=== PATIENT | female | born 1985 | race Caucasian/White ===

== ENCOUNTER → 2020-11-19 | Outpatient (CLI) | payer BC, MEDICARE ==
[~2020-11-19] MED LIST: AMBIEN 10MG10 MG PO; AMITRIPTYLINE H25 M1 PO; CLEOCIN HCL300 MG PO; FIORICET 325 MG1 TA1 PO; K-DUR20 MEQ PO; KLONOPIN 1MG1 MG PO; LASIX 20MG TABL20 MG PO; LASIX 40MG TABL40 MG PO; LOVENOX120 MG/0.8 SQ; NEURONTIN300 MG/CAP PO; NORCO 325 MG-51 TAB PO; NORCO 325 MG-7.1 TAB PO; PHENERGAN50 M1 PO; PLAQUENIL 200M200 MG PO; PRIL40 PO; REDITREX 225 MG/1 ML PO; REGLAN 10MG10 MG/TAB PO; STOOL SOFTENER100 M2 PO; TOPAMAX 25MG25 M1 PO; TOPROL XL 25MG25 MG PO; TOPROL XL 50MG50 MG PO; ZOLOFT 100MG100 MG PO
[2020-11-20 10:34] LABS: ANION GAP 8 mmol/L (7-16); BLOOD UREA NITROGEN 16 mg/dL (7-17); CALCIUM 9.1 mg/dL (8.4-10.2); CARBON DIOXIDE 21 mmol/L (22-30); CHLORIDE 113 mmol/L (98-107); CREATININE, serum 1.03 (0.52-1.25); GLUCOSE 87 mg/dL (74-106); POTASSIUM 4.2 mmol/L (3.4-5.0); SODIUM 141 mmol/L (137-145); TROPONIN-I < 0.012 ng/mL (0.000-0.035)
== END ==
LOC: ZCOL.LAB 13:45
PROVIDERS: Internal Medicine Interventional Cardiology
DX: Z11.59 Encounter for screening for other viral diseases (principal); R06.02 Shortness of breath

== ENCOUNTER 2020-11-20 15:48 | Emergency (ER) | payer BC, MEDICARE ==
[~2020-11-20] VITALS: Ht 167.6 cm; Wt 110.5 kg
[2020-11-20 15:55] VITALS: TEMP 98.5
[2020-11-20 16:49] LABS: COLLECTION METHOD CLEAN CATCH
[2020-11-20 17:13] LABS: PH 7 (5-8); URINE COLOR Yellow
[2020-11-20 17:14] LABS: URINE APPEARANCE Hazy; URINE BILIRUBIN Negative (NEGATIVE); URINE BLOOD Negative (NEGATIVE); URINE GLUCOSE Negative (NEGATIVE); URINE KETONE Negative (NEGATIVE); URINE LEUKOCYTE ESTERASE Negative (NEGATIVE); URINE NITRATE Negative (NEGATIVE); URINE PROTEIN(semi-quant) Negative (NEGATIVE); URINE UROBILINOGEN Negative (NEGATIVE)
[2020-11-20 17:15] LABS: MUCOUS Present /lpf; SQUAMOUS EPITHELIAL 0-2 /hpf; URINE BACTERIA Moderate /hpf; URINE RBC 0-2 /hpf
[2020-11-20 17:44] LABS: ALBUMIN 4.3 gm/dL (3.5-5.0); BILIRUBIN,TOTAL 0.3 mg/dL (0.0-1.0); CALCIUM 9.1 mg/dL (8.4-10.2); CREATININE, serum 0.88 (0.52-1.25); TOTAL PROTEIN 7.9 gm/dL (6.4-8.2)
[2020-11-20 18:20] LABS: BASO # 0.1 (0.0-0.2); BASO % 0.5 % (0.0-2.0); EOS # 0.3 (0.0-0.7); EOS % 2.2 % (0-4.0); GRAN # 7.1 (1.4-6.5); GRAN % 62.9 % (42.2-75.2); HEMATOCRIT 40.4 % (37.0-47.0); HEMOGLOBIN 13.2 g/dl (12.5-16.0); LYMPH # 3.3 (1.2-3.4); LYMPH % 29.2 % (20.0-51.0); MEAN CELL VOLUME 84 fl (80.0-100.0); MEAN CORPUSCULAR HEMOGLOBIN 27 pg (27.0-31.0); MEAN CORPUSCULAR HGB CONC 33 g/dl (33.0-37.0); MEAN PLATELET VOLUME 9.1 fl (7.4-10.4); MONO # 0.6 (0.1-0.6); MONO % 4.9 % (1.7-9.3); PLATELET COUNT 308 K/mm3 (130-400); RED BLOOD COUNT 4.81 M/mm3 (4.10-5.30); REDCELL DISTRIBUTION WIDTH-CV 13.2 % (11.5-14.5)
[2020-11-20] MEDS ORDERED: NORCO 325 MG-51 TAB PO (19:11)
[2020-11-20] MEDS ORDERED: CLEOCIN HCL300 MG PO (19:11)
[2020-11-20 20:19] VITALS: BP 138/78; PULSE 81
[2021-01-16] MEDS ORDERED: LOVENOX120 MG/0.8 SQ (11:55)
[2021-01-16] MEDS ORDERED: ZOLOFT 100MG100 MG PO (11:58)
[2021-01-16] MEDS ORDERED: PRIL40 PO (11:58)
[2021-01-16] MEDS ORDERED: REDITREX 225 MG/1 ML PO (11:58)
[2021-01-16] MEDS ORDERED: NEURONTIN300 MG/CAP PO (11:59)
[2021-01-16] MEDS ORDERED: PLAQUENIL 200M200 MG PO (12:00)
[2021-01-16] MEDS ORDERED: K-DUR20 MEQ PO (12:01)
[2021-01-16] MEDS ORDERED: TOPROL XL 25MG25 MG PO (12:06)
[2021-01-16] MEDS ORDERED: TOPROL XL 50MG50 MG PO (12:07)
[2021-01-16] MEDS ORDERED: AMBIEN 10MG10 MG PO (12:08)
[2021-01-16] MEDS ORDERED: AMITRIPTYLINE H25 M1 PO ×2 (12:08→12:09)
[2021-01-16] MEDS ORDERED: TOPAMAX 25MG25 M1 PO (12:08)
[2021-01-16] MEDS ORDERED: KLONOPIN 1MG1 MG PO (12:09)
[2021-01-16] MEDS ORDERED: LASIX 20MG TABL20 MG PO (12:10)
[2021-01-16] MEDS ORDERED: STOOL SOFTENER100 M2 PO (12:11)
[2021-01-16] MEDS ORDERED: PHENERGAN50 M1 PO (12:12)
[2021-01-16] MEDS ORDERED: REGLAN 10MG10 MG/TAB PO (12:13)
[2021-01-16] MEDS ORDERED: FIORICET 325 MG1 TA1 PO (12:15)
[2021-01-16] MEDS ORDERED: NORCO 325 MG-7.1 TAB PO (12:15)
[2021-01-16] MEDS ORDERED: LASIX 40MG TABL40 MG PO (12:16)
== END 2020-11-20 20:24 | disposition home or self-care (01) ==
LOC: COL.ER 15:48
PROVIDERS: Emergency Medicine
DX: K04.7 Periapical abscess without sinus (principal); M32.9 Systemic lupus erythematosus, unspecified; Z88.6 Allergy status to analgesic agent
CPT/HCPCS: J1100; J1170; J1885; J7120; Q9967

== ENCOUNTER 2021-01-21 10:30 | Outpatient (RCR) | payer BC, MEDICARE ==
[2021-01-12 12:22] VITALS: BP 115/81; PULSE 73; TEMP 98
[2021-01-12 13:33] LABS: CALCIUM 9.9 mg/dL (8.4-10.2); CREATININE, serum 0.99 (0.52-1.25); POTASSIUM 4.2 mmol/L (3.4-5.0)
[2021-01-12 14:50] VITALS: BP 119/92; PULSE 85
[2021-01-12 17:05] VITALS: BP 119/81; PULSE 78
[2021-01-12 18:20] VITALS: BP 124/93; PULSE 99
[2021-01-14 11:36] LABS: CREATININE, serum 1.1 (0.52-1.25); POTASSIUM 3.8 mmol/L (3.4-5.0)
[2021-01-14 12:27] VITALS: BP 111/76; PULSE 75; TEMP 97.4
[2021-01-14 12:45] VITALS: BP 131/99; PULSE 70
[2021-01-14 13:00] VITALS: BP 119/74; PULSE 74
[2021-01-14 13:30] VITALS: BP 105/72; PULSE 69
[2021-01-14 14:30] VITALS: BP 109/69; PULSE 75
[2021-01-14 16:56] VITALS: BP 138/88; PULSE 87
--- NOTE | 2021-01-14 17:41 | NUR ---
Report to Steffi Hayden.
[2021-01-16 11:19] LABS: CALCIUM 9.4 mg/dL (8.4-10.2); CREATININE, serum 1.13 (0.52-1.25); POTASSIUM 3.7 mmol/L (3.4-5.0)
[2021-01-16 11:52] VITALS: BP 108/65; BP 82/46; PULSE 68; TEMP 97.2
[2021-01-16 12:52] VITALS: BP 111/84; PULSE 68
[2021-01-16 14:16] VITALS: BP 120/86; PULSE 78
[2021-01-16 15:50] VITALS: BP 120/84; PULSE 78
[2021-01-16 16:35] VITALS: BP 127/83; PULSE 73
[2021-01-19] VITALS (7 sets, daily range): BP systolic 105–127; BP diastolic 68–92; PULSE 70–91; TEMP 97.8
[2021-01-19 11:52] LABS: CALCIUM 9.3 mg/dL (8.4-10.2); CREATININE, serum 1.07 (0.52-1.25); POTASSIUM 3.3 mmol/L (3.4-5.0)
[~2021-01-21] VITALS: Ht 167.6 cm; Wt 105.3 kg
[2021-01-21 11:19] LABS: CALCIUM 9.8 mg/dL (8.4-10.2); CREATININE, serum 1.14 (0.52-1.25); POTASSIUM 3.2 mmol/L (3.4-5.0)
[2021-01-21 11:30] VITALS: BP 107/74; PULSE 96; TEMP 98.1
[2021-01-21 13:00] VITALS: BP 110/70; PULSE 87
[2021-01-21 14:10] VITALS: BP 132/68; PULSE 95
[2021-01-21 15:00] VITALS: BP 106/77; PULSE 99
[2021-01-21 16:00] VITALS: BP 137/100; PULSE 94
--- NOTE | 2021-01-21 16:14 | NUR ---
report to Nicci ROJAS to assume care
== END 2021-01-21 17:45 | disposition home or self-care (01) ==
LOC: EUO 10:30
PROVIDERS: Internal Medicine Interventional Cardiology
DX: R60.9 Edema, unspecified (principal)
CPT/HCPCS: J1940

== ENCOUNTER 2021-08-09 12:07 | Emergency (ER) | payer BC, MEDICARE ==
[~2021-08-09] VITALS: Ht 167.6 cm; Wt 102.3 kg
[2021-08-09 12:21] VITALS: TEMP 97.6
[2021-08-09 14:16] LABS: BASO # 0.1 K/mm3 (0.0-0.2); BASO % 1.1 % (0.0-2.0); EOS # 0.3 K/mm3 (0.0-0.7); GRAN # 3.5 K/mm3 (1.4-6.5); GRAN % 56.1 % (42.2-75.2); HEMATOCRIT 36.6 % (37.0-47.0); HEMOGLOBIN 11.6 g/dl (12.5-16.0); LYMPH # 1.9 K/mm3 (1.2-3.4); LYMPH % 31.4 % (20.0-51.0); MEAN CELL VOLUME 91 fl (80.0-100.0); MEAN CORPUSCULAR HEMOGLOBIN 29 pg (27.0-31.0); MEAN CORPUSCULAR HGB CONC 32 g/dl (33.0-37.0); MEAN PLATELET VOLUME 8.9 fl (7.4-10.4); MONO # 0.4 K/mm3 (0.1-0.6); MONO % 7.1 % (1.7-9.3); PLATELET COUNT 293 K/mm3 (130-400); RED BLOOD COUNT 4.04 M/mm3 (4.10-5.30); REDCELL DISTRIBUTION WIDTH-CV 13.5 % (11.5-14.5)
[2021-08-09 14:24] LABS: INR 1.1 (0.8-3.0); PROTHROMBIN TIME 11.7 SECONDS (9.7-12.8)
[2021-08-09 14:33] LABS: ALBUMIN 3.9 gm/dL (3.5-5.0); BILIRUBIN,TOTAL 0.3 mg/dL (0.2-1.2); C-REACTIVE PROTEIN 1.64 mg/dL (0.00-0.50); CALCIUM 8.9 mg/dL (8.4-10.2); CREATININE, serum 0.91 mg/dL (0.57-1.11); POTASSIUM 4.2 mmol/L (3.5-4.5)
[2021-08-09 14:47] LABS: ERYTHROCYTE SEDIMENTATION RATE 20 mm/hr (0-20)
[2021-08-09 15:48] VITALS: BP 118/76; PULSE 72
== END 2021-08-09 15:52 | disposition home or self-care (01) ==
LOC: COL.ER 12:07
PROVIDERS: Nurse Practitioner
DX: S80.12XA Contusion of left lower leg, initial encounter (principal); S80.11XA Contusion of right lower leg, initial encounter; M32.9 Systemic lupus erythematosus, unspecified; Z79.899 Other long term (current) drug therapy; X58.XXXA Exposure to other specified factors, initial encounter

== ENCOUNTER → 2024-04-06 | Outpatient (CLI) | payer MEDICARE ==
[~2024-04-06] MED LIST changes: +Albuterol 0.083% Neb Soln 2.5 MG/3 ML UD IH ONE
== END ==
LOC: COL.VAS 09:25
DX: D75.89 Other specified diseases of blood and blood-forming organs (principal); Z87.09 Personal history of other diseases of the respiratory system

== ENCOUNTER 2024-04-16 11:08 | Day surgery (SDC) | payer MEDICARE ==
[~2024-04-16] VITALS: Ht 167.6 cm; Wt 71.9 kg
[~2024-04-16 11:08] MED LIST changes: -Albuterol 0.083% Neb Soln 2.5 MG/3 ML UD IH ONE
[2024-04-16 11:51] VITALS: BP 121/81; PULSE 58; TEMP 99
[2024-04-16] MEDS ORDERED: PROAIR HFA0.09 MG/AC IH (12:36)
[2024-04-16] MEDS ORDERED: ASPIRIN 81M81 MG/TA2 PO (12:37)
[2024-04-16] MEDS ORDERED: 00186-0370-20 IH (12:37)
[2024-04-16] MEDS ORDERED: ZYRTEC 10MG10 MG PO (12:38)
[2024-04-16] MEDS ORDERED: FLEXERIL 1010 MG/TAB PO (12:39)
[2024-04-16] MEDS ORDERED: B-121000 MCG PO (12:39)
[2024-04-16] MEDS ORDERED: NEXPLANON68 MG ID (12:40)
[2024-04-16] MEDS ORDERED: EPIPEN 2-PAK1 MG/ML IM (12:40)
[2024-04-16] MEDS ORDERED: BENADRYL25 M2 PO (12:40)
[2024-04-16] MEDS ORDERED: NURTEC ODT75 MG PO (12:41)
[2024-04-16] MEDS ORDERED: ZOFRAN 4MG T4 MG/TAB PO (12:41)
[2024-04-16] MEDS ORDERED: TRILEPTAL600 MG PO (12:42)
[2024-04-16] MEDS ORDERED: KLOR-CON20 MEQ PO (12:43)
[2024-04-16] MEDS ORDERED: COUMADIN 22.5 MG/TAB PO (12:43)
--- NOTE | 2024-04-16 13:23 | NUR ---
Please see merge document for record of loop remove and replace with Dr. Paul. No sedation was administered for loop removal, lidocaine only.
[2024-04-16] MEDS ORDERED: NS 250 ML IV.SOLN. IR SCH (13:25)
[2024-04-16 14:04] VITALS: BP 114/87; PULSE 61
--- NOTE | 2024-04-16 14:08 | NUR ---
Livia transferred back to express unit rm 11, bs report and handoff of care to Leda ROJAS
[2024-04-16] MEDS ORDERED: CEPHALEXIN500 M1 PO (14:10)
--- NOTE | 2024-04-16 14:36 | NUR ---
PT TOLERATED RECOVERY PERIOD WELL. VS REMAINED WITHIN NORMAL LIMITS. PT FREE FROM ACUTE CONCERNS AND COMPLAINTS UPON DISCHARGE. PT'S CHEST DRESSING REMAINED CLEAN DRY AND INTACT AND PT REPORTED 0/10 PAIN. [facility] AND WAS ACCOMPANIED BY . IV DISCONTINUED.
== END 2024-04-16 14:37 | disposition home or self-care (01) ==
LOC: COL.CAR 11:08
DX: I87.1 Compression of vein (principal); R06.02 Shortness of breath; D68.51 Activated protein C resistance; Z95.818 Presence of other cardiac implants and grafts; Z86.718 Personal history of other venous thrombosis and embolism; Z79.82 Long term (current) use of aspirin; Z79.01 Long term (current) use of anticoagulants; Z77.22 Contact with and (suspected) exposure to environmental tobacco smoke (acute) (chronic); Z79.899 Other long term (current) drug therapy
CPT/HCPCS: C1764; J0690; J7050